=== PATIENT | male | born 1985 | race African-American/Black ===

== ENCOUNTER 2018-06-11 14:28 | Emergency (ER) | payer OTHER ==
[~2018-06-11] VITALS: Ht 198.1 cm; Wt 107.7 kg
[2018-06-11 14:36] VITALS: Ht 198.1 cm; Wt 107.7 kg
[2018-06-11 16:24] LABS: BASOPHIL % 0.9 % (0-2); PLATELET COUNT 274 x10^3mcL (130-400); RED CELL DISTRIBUTION WIDTH 13.7 % (11.5-14.5)
[2018-06-11 17:07] VITALS: BP 149/92
[2018-06-11 17:14] LABS: CALCIUM 9.7 mg/dL (8.5-10.1); CARBON DIOXIDE 26.6 mmol/L (21-32); CHLORIDE SERUM 100 mmol/L (98-107); CREATININE SERUM 1.4 mg/dL (0.7-1.3); GFR1 > 60 mL/min; GLUCOSE SERUM 103 mg/dL (74-106); POTASSIUM SERUM 3.8 mmol/L (3.5-5.1); SODIUM SERUM 137 mmol/L (136-145)
[2018-06-11 17:20] LABS: ALKALINE PHOSPHATASE 103 U/L (46-116); ALT/SGPT 77 U/L (16-63); AST/SGOT 44 U/L (15-37); BILIRUBIN TOTAL 0.66 mg/dL (0.20-1.00); LIPASE 154 IU/L (73-393); TOTAL PROTEIN, SERUM 8.6 g/dL (6.4-8.2)
== END 2018-06-11 17:46 | disposition home or self-care (01) ==
LOC: ED 14:28
PROVIDERS: Emergency Medicine
DX: R10.11 Right upper quadrant pain (principal); R11.10 Vomiting, unspecified; I10 Essential (primary) hypertension
CPT/HCPCS: 36415; Q0092

== ENCOUNTER 2019-03-09 13:45 | Emergency (ER) | payer OTHER ==
[~2019-03-09] VITALS: Ht 195.6 cm; Wt 105.7 kg
[2019-03-09 13:51] VITALS: BP 133/96; Ht 195.6 cm; Wt 105.7 kg
== END 2019-03-09 16:58 | disposition home or self-care (01) ==
LOC: ED 13:45
DX: M70.872 Other soft tissue disorders related to use, overuse and pressure, left ankle and foot (principal); S90.32XA Contusion of left foot, initial encounter; S99.822A Other specified injuries of left foot, initial encounter; F17.200 Nicotine dependence, unspecified, uncomplicated; X58.XXXA Exposure to other specified factors, initial encounter; Y93.67 Activity, basketball; Y92.89 Other specified places as the place of occurrence of the external cause; Y99.8 Other external cause status
CPT/HCPCS: 99406

== ENCOUNTER 2019-07-19 18:02 | Emergency (ER) | payer OTHER ==
[~2019-07-19] VITALS: Ht 195.6 cm; Wt 104.8 kg
[2019-07-19 18:20] VITALS: BP 125/81
== END 2019-07-19 20:54 | disposition home or self-care (01) ==
LOC: ED 18:02
DX: L70.9 Acne, unspecified (principal); I10 Essential (primary) hypertension

== ENCOUNTER 2019-08-27 12:40 | Emergency (ER) | payer SELFPAY ==
[~2019-08-27] VITALS: Ht 195.6 cm; Wt 107.5 kg
[2019-08-27 12:43] VITALS: Ht 195.6 cm; Wt 107.5 kg
[2019-08-27 13:33] VITALS: BP 151/89
== END 2019-08-27 13:33 | disposition home or self-care (01) ==
LOC: ED 12:40
DX: L72.3 Sebaceous cyst (principal); I10 Essential (primary) hypertension